=== PATIENT | male | born 1950 | race Caucasian/White ===

== ENCOUNTER 2020-08-14 07:32 | Day surgery (SDC) | payer MEDICARE ==
[2020-08-07 12:46] LABS: EOSINOPHILS # (AUTO) 0.1 X10'3 (0-0.9); EOSINOPHILS % (AUTO) 2.7 % (0-6); LYMPHOCYTES # (AUTO) 1.7 X10'3 (1.1-4.8); LYMPHOCYTES % (AUTO) 36.9 % (21-51); MEAN CORPUSCULAR HEMOGLOBIN 31.8 PG (27.0-31.0); MEAN CORPUSCULAR HGB CONC 34.1 g/dL (33.0-36.5); MEAN CORPUSCULAR VOLUME 93.3 FL (78-98); MEAN PLATELET VOLUME 7.4 FL (7.4-10.4); MONOCYTES # (AUTO) 0.5 X10'3 (0-0.9); MONOCYTES % (AUTO) 11.6 % (2-12); NEUTROPHILS # (AUTO) 2.2 X10'3 (1.8-7.7); NEUTROPHILS % (AUTO) 47.8 % (42-75); PRE OP HEMATOCRIT 41.5 % (42.0-52.0); PRE OP HEMOGLOBIN 14.1 g/dL (14.0-17.9); PRE OP PLATELET COUNT 191 X10'3 (140-440); RED BLOOD COUNT 4.44 X10'6 (4.70-6.10)
[2020-08-07 12:55] LABS: PRE OP PROTIME 10.1 SECONDS (9.0-12.0)
[2020-08-07 13:00] LABS: ALBUMIN 3.7 G/DL (3.4-5.0); ALBUMIN/GLOBULIN RATIO 1.2 (1.1-1.5); ALKALINE PHOSPHATASE 63 IU/L (46-116); BLOOD UREA NITROGEN 17 MG/DL (7-18); BUN/CREATININE RATIO 17.3 (5.4-32.0); CALCIUM 8.6 MG/DL (8.5-10.1); CHLORIDE 105 MMOL/L (99-107); CREATININE 0.98 MG/DL (0.60-1.10); PRE OP ALT 32 U/L (30-65); PRE OP ANION GAP 6 (8-16); PRE OP AST 37 U/L (10-37); PRE OP BILIRUB, TOTAL 0.7 MG/DL (0.0-1.0); PRE OP GLUCOSE 99 MG/DL (70-104); PRE OP SODIUM 141 MMOL/L (135-145); TOTAL CARBON DIOXIDE 29.7 MMOL/L (24-32); TOTAL PROTEIN 6.7 G/DL (6.4-8.2); eGFR 76 ML/MIN
[~2020-08-14] VITALS: Ht 180.3 cm; Wt 78.7 kg
[2020-08-14] VITALS (11 sets, daily range): BP systolic 123–163; BP diastolic 70–95
[~2020-08-14 07:32] MED LIST: LIDOcaine 1% W/epiNEPHrine 1:100,000 20ml vial ONE; MAGN100T6 PO; VITA1TAB20 PO; cefTAZidime 1gm inj ONE; cocaine 4% topical solution 4ml bottle ONE; diazepam 5mg tablet PO PRN; famotidine 20mg tablet PO ONE; mupirocin 2% ointment 22GM ONE; oxymetazoline 15 ML nasal spray NS ONE; oxymetazoline 15 ML nasal spray NS PRN
[2020-08-14] MEDS ORDERED: ringers solution, lacted 1,000 ML IV SCH (08:05)
[2020-08-14] MEDS ORDERED: ondansetron/PF 4mg/2ml inj IV PRN (08:05)
[2020-08-14] MEDS ORDERED: meperidine/PF 25mg/ml syringe IV PRN ×3 (08:05)
[2020-08-14] MEDS ORDERED: morphine 2 MG/ML inj. syringe IV PRN (08:05)
[2020-08-14] MEDS ORDERED: morphine 4 MG/ML inj SYRINge IV PRN (08:05)
[2020-08-14] MEDS ORDERED: proCHLORperazine 10 MG/2 ml inj IV PRN (08:05)
[2020-08-14] MEDS: ringers solution, lacted 1,000 ML IV SCH ×2 (08:47→17:59)
[2020-08-14] MEDS ORDERED: midazolam 1 mg/ML 2ml injection ONE (10:06)
[2020-08-14] MEDS ORDERED: fentaNYL/PF 50MCG/1 ML 2ML syringe ONE (10:07)
[2020-08-14] MEDS ORDERED: propofol inj 20 ML IV ONE (10:07)
[2020-08-14] MEDS ORDERED: sevoflurane 250ml liquid IH ONE (10:09)
[2020-08-14] MEDS ORDERED: ondansetron/PF 4mg/2ml inj ONE (10:29)
[2020-08-14] MEDS ORDERED: dexamethasone sod phosphate 4mg/ml inj. ONE (10:29)
--- NOTE | 2020-08-14 12:10 | NUR ---
ADMITTED TO PACU FROM OR ACCOMPANIED BY ANESTHESIA. INTIAL PHYSICAL ASSESSMENT DONE AND RECORDED. REPORT RECEIVED FROM ANESTHESIA.
--- NOTE | 2020-08-14 13:22 | NUR ---
Patient in room . I have received report from RONAL Blackwell and had the opportunity to ask questions and assume patient care.
[2020-08-14] MEDS ORDERED: salt irrigation nasal spray 45 ML SPRAY NS PRN (13:25)
--- NOTE | 2020-08-14 13:30 | NUR ---
PACU DISCHARGE CRITERIA MET, REPORT GIVEN TO FLOOR. DENIES PAIN OR DISCOMFORT. PT IS STABLE AND ADEQUATELY RECOVERED FROM ANESTHESIA. PT HAS STABLE AIRWAY PATENCY, RESPIRATORY FUNCTION TO INCLUDE RESPIRATORY RATE AND O2 SAT. HEART RATE, BLOOD PRESSURE STABLE AND HYDRATION ADEQUATE. MENTAL STATUS IS APPROPRIATE. PAIN AND NAUSEA CONTROLLED. REFER TO PACU SPREADSHEET FOR VITAL SIGNS.
[2020-08-14] MEDS: acetaminophen w/codeine (30MG) #3 tablet PO PRN ×2 (13:42→17:59)
--- NOTE | 2020-08-14 13:50 | NUR ---
Reagan from OR, brought patient up via gurlubna, VS, 2RN assessment, and physical assessment will be completed. Will continue to monitor.
[2020-08-14] MEDS ORDERED: diazepam 5mg tablet PO ONE (14:10)
--- NOTE | 2020-08-14 15:46 | NUR ---
Spoke to Dr. Gibbs's surgical resident and asked if it was possible to receive an order for Afrin as pt is draining through his gauze pads x3 after transferring to floor. commissions coordinator stated order needs to be signed by Dr. Gibbs. Coordinator stated she will call back for an update.
[2020-08-14] MEDS ORDERED: oxymetazoline 15 ML nasal spray NS ONE (16:00)
--- NOTE | 2020-08-14 16:12 | NUR ---
Per Dr. Gibbs, new order for Afrin nasal spray, two sprays on both sides NOW. Then again anytime in the next 24 hours PRN.
--- NOTE | 2020-08-14 18:18 | NUR ---
Patient in room [facility]. I have received report from RONAL Castrejon and had the opportunity to ask questions and assume patient care.
--- NOTE | 2020-08-14 18:20 | NUR ---
Problems reprioritized. Patient report given, questions answered & plan of care reviewed with RONAL Castrejon.
--- NOTE | 2020-08-14 20:00 | NUR ---
PT REFUSED MRSA SWAB DUE TO BEING S/P SEPTOPLASTY
--- NOTE | 2020-08-15 06:30 | NUR ---
Patient in room . I have received report from Cash Hawkins RN, and had the opportunity to ask questions and assume patient care.
--- NOTE | 2020-08-15 06:49 | NUR ---
Problems reprioritized. Patient report given, questions answered & plan of care reviewed with Samanta. Addendum: 08/15/20 at 0649 by Que Cabrera RN Amended: Links added.
[2020-08-15 07:10] VITALS: BP 114/69
--- NOTE | 2020-08-15 07:15 | NUR ---
Dr Gibbs phoned to inquire of pt and stated pt may be discharged neeta this am. MD stated all instructions from him are in patient's chart. MD's orders were reviewed w/ MD by this nurse. Pt aware of, and with minimal re-education of dc'g teaching and MD orders, verbalized instructions, as well as demonstrated use of nasal meds. All supplies per MD orders were given to pt for DC'g. Mustraymundo hatch changed w/ minimal drainage occurring on new pad. Pt denies questions re: discharge care of post op sinus surgery.
[2020-08-15] MEDS ORDERED: vitamin B comp w/Vit. C tab 1 TAB TABLET PO SCH (08:00)
[2020-08-15] MEDS ORDERED: oxymetazoline 15 ML nasal spray NS PRN (17:00)
== END 2020-08-15 10:40 | disposition home or self-care (01) ==
LOC: PAS 07:32 → SUR 3N 15:10 → PAS 08-15 10:40
PROVIDERS: ATTEND Otolaryngology
DX: J34.2 Deviated nasal septum (principal); J34.3 Hypertrophy of nasal turbinates; J32.8 Other chronic sinusitis; J33.8 Other polyp of sinus; Z72.89 Other problems related to lifestyle; Z79.01 Long term (current) use of anticoagulants; Z87.891 Personal history of nicotine dependence; Z98.890 Other specified postprocedural states; Z79.899 Other long term (current) drug therapy
CPT/HCPCS: 30140; 30520; 31254; 31267; 36415; 80053; 82948; 85025; 85576; 85610; 85730; A6402; C9250; J0713; J1100; J2250; J2405; J2704; J3010; J7040; J7120; U0003; U0005; 88300; 88304; 88311; A4618; A7000; G0378